=== PATIENT | female | born 1970 | race Two or more races ===

== ENCOUNTER 2022-03-29 13:42 | Emergency (ER) | payer MEDICAID ==
[~2022-03-29] VITALS: Ht 172.7 cm; Wt 93.0 kg
--- NOTE | 2022-03-29 13:50 | NUR ---
BIBS C/O BODY PAIN, HEADACHE, AND BLURRY VISION ON HER R EYE, PT HAD A GLF LAST NIGHT -KO -BT
[2022-03-29] MEDS ORDERED: KETOROLAC TROMETHAMINE INJ 30 MG/ML VIAL IM ONE (14:30)
--- NOTE | 2022-03-29 14:41 | NUR ---
pt taken to ct
[2022-03-29] MEDS ORDERED: KETOROLAC TROMETHAMINE INJ 30 MG/ML VIAL ONE (15:05)
--- NOTE | 2022-03-29 17:12 | NUR ---
Patient discharged to home in stable condition. Written and verbal after care instructions given. Patient verbalizes understanding of instruction.
[2022-03-29 17:13] VITALS: BP 110/74
== END 2022-03-29 17:14 | disposition home or self-care (01) ==
LOC: ER 13:44
DX: S00.83XA Contusion of other part of head, initial encounter (principal); S00.11XA Contusion of right eyelid and periocular area, initial encounter; Z85.3 Personal history of malignant neoplasm of breast; W01.0XXA Fall on same level from slipping, tripping and stumbling without subsequent striking against object, initial encounter; Y93.01 Activity, walking, marching and hiking; Y92.89 Other specified places as the place of occurrence of the external cause; Y99.8 Other external cause status
CPT/HCPCS: 99284; 70450; 96372; 70486; J1885